=== PATIENT | male | born 1995 | race Caucasian/White ===

== ENCOUNTER 2023-08-20 19:17 | Emergency (ER) | payer SELFPAY ==
[~2023-08-20] VITALS: Ht 188 cm; Wt 72.0 kg
[2023-08-20 19:18] VITALS: BP 118/72; PULSE 100; RESP 20; TEMP 98.2; O2SAT 95
== END 2023-08-20 20:43 | disposition left against medical advice (07) ==
LOC: ER 19:17
DX: Z53.21 Procedure and treatment not carried out due to patient leaving prior to being seen by health care provider (principal)
CPT/HCPCS: 99281